=== PATIENT | male | born 1980 | race Caucasian/White ===

== ENCOUNTER → 2018-12-14 | Emergency (ER) | payer MEDICAID ==
[~2018-12-14] VITALS: Ht 172.7 cm; Wt 101.6 kg
[~2018-12-14] MED LIST: SILV20CR13 TOP; SILVER SULFADIAZINE 1% 400 GM CR TOP ONE
[2018-12-14 14:45] VITALS: Ht 172.7 cm; Wt 101.6 kg
[2018-12-14 17:31] VITALS: BP 121/76; PULSE 69; RESP 16
--- NOTE | 2018-12-14 19:09 | ERD ---
ER Documentation Chief Complaint Chief Complaint sun burn on back since yesterday HPI This is a 38-year-old male with no past medical history that presents to the emergency department complaining of a sunburn. The patient stated he had been working out yesterday in the hot sun with no shirt. He noticed he received a sunburn of his left shoulder. When he awoke this morning he noticed small fluid-filled blisters. It was painful to the touch. Therefore he came to the emergency department to be further evaluated. ROS All systems reviewed and are negative except as per history of present illness. Medications Home Meds Active Scripts Silver Sulfadiazine* (SSD*) 1% - 20 Gm Cream.gm., 1 APPLIC TOP BID, #1 TUB Prov:NAEEM MCGRATH MD 12/14/18 Allergies Allergies: Coded Allergies: No Known Allergy (Unverified , 12/14/18) PMhx/Soc Medical and Surgical Hx: pt denies Medical Hx, pt denies Surgical Hx History of Surgery: Yes (L cheekbone fx repair) Hx Alcohol Use: No Hx Substance Use: No Hx Tobacco Use: No Smoking Status: Never smoker Physical Exam Vitals Vital Signs Date Temp Pulse Resp B/P (MAP) Pulse Ox O2 O2 Flow FiO2 Time Delivery Rate 12/14/18 98.1 69 16 121/76 98 Room Air 17:31 (91) 12/14/18 97.7 76 18 128/72 99 14:45 (90) Physical Exam Constitutional:Well-developed. Well-nourished. Respiratory: Lungs are clear to auscultation bilaterally. There is no wheezing or rhonchi rales. Cardiovascular: Regular rate rhythm. S1-S2 is normal. No murmurs or rubs are appreciated. Skin: No petechia, no purpura. No lesions on the palms or the soles of the feet. No maculopapular rash. Warm and erythematous and tender superficial burn over the left posterior shoulder, blanching, total body surface area 1%. NEURO: Patient was alert, awake, orientated x3.No facial droop. Gait observed and normal with no ataxia.Speech had regular rate and rhythm. No focal neurological deficits. Results 24 hrs Current Medications Medications Dose Sig/Bucky Start Time Status Last (Trade) Ordered Route PRN Stop Time Admin Dose Reason Admin Silver 1 applic ONCE ONCE 12/14/18 DC 12/14/18 Sulfadiazine TOP 17:00 12/14/18 17:18 (Thermazene 17:01 1% 400 Gm) Procedures/MDM This is a 38-year-old male that presented to the emergency department the first degree burn consistent with a sunburn. The patient had Silvadene cream applied. The patient felt comfortable being discharged home. The patient was discharged home in fair condition. They were instructed to return to the emergency department at any time if there was any worsening of their condition. The patient stated they would follow up with their PCP in the next 24-48 hours to initiate a suitable medication regimen under the care of their PCP as well as to allow their PCP to monitor any drug reactions. The patient was discharged home with prescriptions after they gave informed consent to the new medication. They were also fully informed by myself on the adverse effects and adverse drug interactions in order to provide adequate safeguards to prevent possible adverse reactions to medications. Departure Diagnosis: Primary Impression: Sunburn Condition: Fair Patient Instructions: NAEEM Mendoza MD Dec 14, 2018 19:05
== END | disposition home or self-care (01) ==
LOC: FTE 14:41
DX: L55.0 Sunburn of first degree (principal)
CPT/HCPCS: 16000; Z7502; Z7610